=== PATIENT | female | born 1955 | race American Indian/Alaskan Native ===

== ENCOUNTER 2017-08-29 06:09 | Inpatient (IN) | payer OTHER ==
[2017-08-27 08:35] VITALS: BMI 30.9
[2017-08-29] MEDS ORDERED: MethylPREDNISolone Depo 40 mg/ml Inj ONE (07:19)
[2017-08-29] MEDS ORDERED: ceFAZolin IV 1 gm in Dextrose 1 GM/50 ML BAG IVPB ONE (07:20)
[2017-08-29] MEDS ORDERED: Bacitracin Ointment 30 GM TUBE ONE ×2 (07:20→17:01)
[2017-08-29] MEDS ORDERED: Thrombin Topical 5,000 Int Units Spray Kit ONE (07:21)
[2017-08-29] MEDS ORDERED: Absorbable Gelatin Sponge Size 100 ONE (07:21)
--- NOTE | 2017-08-29 08:14 | CP.PCM.HP ---
History of Present Illness - History of Present Illness History of Present Illness: 61 year old female with PMHx of HTN and glaucoma seen in SDS preoperatively for right knee pain secondary to osteoarthritis that she says has been getting increasingly worse over the last several months. Pt is scheduled to have right total knee replacement today with Dr. Thomas. Pt states that she has tried all conservative treatment as an outpatient including therapeutic exercises and injections to the knee but relates that none of these approaches have relieved her of her pain. She opts for surgical correction at this time. Patient states that overall she is feeling well today. She states that she has been NPO since before midnight last nights. She also states that she has had a hysterectomy and hemmerhoidectomy in the past and denies any adverse side effects from the anesthesia during or following those procedures. Patient is AAO x 3 and NAD. She denies any other complaints at this time. 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 All other systems reviewed and found to be negative Past Patient History - Past Medical History & Family History Past Medical History?: Yes - Past Social History Smoking Status: Never Smoked Chewing Tobacco Use: No Cigar Use: No Alcohol: None Drugs: Denies Home Situation {Lives}: Alone Domestic Violence: Negative - CARDIAC Hx Cardiac Disorders: Yes Hx Hypertension: Yes - PULMONARY Hx Respiratory Disorders: No - NEUROLOGICAL Hx Neurological Disorder: No - HEENT Hx HEENT Problems: Yes Hx Glaucoma: Yes (O.U) - RENAL Hx Chronic Kidney Disease: No - ENDOCRINE/METABOLIC Hx Endocrine Disorders: No - HEMATOLOGICAL/ONCOLOGICAL Hx Blood Disorders: No - INTEGUMENTARY Hx Dermatological Problems: No - MUSCULOSKELETAL/RHEUMATOLOGICAL Hx Musculoskeletal Disorders: Yes Hx Arthritis: Yes Hx Osteoarthritis: Yes - GASTROINTESTINAL Hx Gastrointestinal Disorders: No - GENITOURINARY/GYNECOLOGICAL Hx Genitourinary Disorders: No - PSYCHIATRIC Hx Psychophysiologic Disorder: No - SURGICAL HISTORY Hx Surgeries: Yes Hx Hysterectomy: Yes - ANESTHESIA Hx Anesthesia: Yes Hx Anesthesia Reactions: No Hx Malignant Hyperthermia: No Has any member of the family had a problem w/ anesthesia?: No Meds Allergies/Adverse Reactions: Allergies Allergy/AdvReac Type Severity Reaction Status Date / Time codeine Allergy RASH Verified 08/27/17 08:35 Sulfa (Sulfonamide Allergy RASH Verified 08/27/17 08:35 Antibiotics) aspirin AdvReac RASH Verified 08/27/17 08:34 Physical Exam - Constitutional Appears: Well, Non-toxic, No Acute Distress - Head Exam Head Exam: ATRAUMATIC, NORMOCEPHALIC - Eye Exam Eye Exam: EOMI, PERRL Pupil Exam: PERRL - ENT Exam ENT Exam: Mucous Membranes Moist - Neck Exam Neck exam: Positive for: Normal Inspection. Negative for: Tenderness - Respiratory Exam Respiratory Exam: Clear to Auscultation Bilateral, NORMAL BREATHING PATTERN - Cardiovascular Exam Cardiovascular Exam: REGULAR RHYTHM - GI/Abdominal Exam GI & Abdominal Exam: Soft. absent: Distended, Firm, Guarding, Tenderness - Rectal Exam Rectal Exam: Deferred - Extremities Exam Extremities exam: Negative for: calf tenderness Additional comments: Moderate edema noted to right knee. Pain noted with passive ROM - Neurological Exam Neurological exam: Alert, Oriented x3 - Psychiatric Exam Psychiatric exam: Normal Affect, Normal Mood - Skin Skin Exam: Intact, Normal Color, Warm Assessment & Plan - Assessment and Plan (Free Text) Assessment: 61 year old female with PMHx of HTN and glaucoma seen in SDS preoperatively for right knee pain secondary to osteoarthritis that she says has been getting increasingly worse over the last several months. Pt is scheduled to have right total knee replacement today with Dr. Thomas. Plan: 1. Osteoarthritis, right knee - Patient for TKR, right side with Dr. Thomas today - NPO status confirmed - Medical clearance found in chart - All charts, labs, vitals reviewed with no pertinent findings noted that would contradict surgical intervention at this time - Will f/u with pt postoperatively for pain management and continued medical management 2. HTN - All charts, labs vitals reviewed - Pt to continue at home medications; triamterene-HCTZ - Date & Time Date: 08/29/17 Time: 08:24
[2017-08-29 08:36] LABS: RBC URINE 2 /hpf (0-3); URINE BILIRUBIN NEGATIVE (NEGATIVE); URINE BLOOD NEGATIVE (NEGATIVE); URINE COLOR YELLOW (YELLOW); URINE GLUCOSE (UA) NEG (Normal); URINE KETONE NEGATIVE (NEGATIVE); URINE LEUKOCYTE ESTERASE NEG Leu/uL (Negative); URINE PROTEIN NEGATIVE (NEGATIVE); URINE UROBILINOGEN 0.2-1.0 mg/dL (0.2-1.0); WBC URINE < 1 /hpf (0-5)
[2017-08-29] MEDS ORDERED: Lactated Ringer's 1,000 ML IV ONE (09:15)
[2017-08-29] MEDS ORDERED: Bupivacaine HCl 0.5% PF (10 ml) Inj ONE ×2 (10:02→14:01)
--- NOTE | 2017-08-29 14:16 | RAD ---
PROCEDURE: Right Knee Radiographs. HISTORY: pre op COMPARISON: None. FINDINGS: BONES: No fracture or suspicious destructive bony lesion identified. JOINTS: There is marked joint space narrowing at the medial and lateral femorotibial compartments as well as the patellofemoral articulation combine with osteophytosis and articular sclerosis. Relatively extensive subchondral cyst formation seen at the patellar side of the patellofemoral joint compatible with advanced osteoarthritis. No subluxation or dislocation. JOINT EFFUSION: A mild suprapatellar bursa effusions identified. OTHER FINDINGS: None. IMPRESSION: Advanced, tricompartmental osteoarthritis right knee. No acute fracture or dislocation.
[2017-08-29] MEDS ORDERED: Midazolam 2 MG/2 ML VIAL ONE (14:28)
[2017-08-29] MEDS ORDERED: Oxycodone/Acetaminophen 5/325 mg Tab PO PRN (14:41)
[2017-08-29] MEDS ORDERED: Sevoflurane - Inhalation Anesthetic Liq (250 ml) ONE ×2 (15:21→16:44)
[2017-08-29] MEDS ORDERED: Lidocaine 4% (Laryng-O-Jet) Kit MM ONE (15:22)
[2017-08-29] MEDS ORDERED: Phenylephrine 10 mg/ml Inj ONE (15:30)
[2017-08-29] MEDS ORDERED: ePHEDrine 50 mg/ml Inj ONE (15:31)
[2017-08-29] MEDS ORDERED: Rocuronium 10 mg/ml (5 ml) ONE ×2 (15:34→15:41)
[2017-08-29] MEDS ORDERED: Succinylcholine 200 mg/10 ml Inj IV ONE (15:34)
[2017-08-29] MEDS ORDERED: Propofol 10 mg/ml Inj (20 ML) ONE (15:34)
[2017-08-29] MEDS ORDERED: Lidocaine 2% MPF (5 ml) Inj ONE (15:34)
[2017-08-29] MEDS ORDERED: Dexamethasone 4 mg/1 ml ONE (15:58)
[2017-08-29] MEDS ORDERED: Desflurane Inhalation Anesthetic Liq (240 ml) ONE (16:44)
--- NOTE | 2017-08-29 17:52 | PCM.SURG1 ---
Surgeon's Initial Post Op Note - Surgeon's Notes Surgeon: Martha Vp Publisher Development: Daisy Gamino MD/ 2nd assist- KERRI Tobias Type of Anesthesia: General Endo, Spinal Anesthesia Administered By: DR Conte/Dr Hong Pre-Operative Diagnosis: Tricompartmental O/A Operative Findings: as above. Tricopm partmental synovitis. post capsular contrxure. lateral patella contrax Post-Operative Diagnosis: as above Operation Performed: TKR R. posterior capsular release. lateral sherman;la release. tricomparmtental synovitis Specimen/Specimens Removed: synovium/cartilage/bone Estimated Blood Loss: EBL {In ML}: 50 Blood Products Given: N/A Drains Used: No Drains Post-Op Condition: Good Date of Surgery/Procedure: 08/29/17 Time of Surgery/Procedure: 15:40 (time in room/anesthesia induction time:1425)
--- NOTE | 2017-08-29 17:55 | PCM.ANESB3 ---
Femoral Nerve Block - Femoral Nerve Block Date of Procedure: 08/29/17 Anesthesiologist: Hal Pre-Procedure Diagnosis: Right Knee Arthritis Post-Procedure Diagnosis: Right knee Arthritis Procedure Performed: Femoral Nerve Block Right - Procedure Femoral Nerve Block: The procedure was explained to the patient that it is for the post-operative pain management. Consent was obtained after a thorough discussion with the patient regarding the benefits and possible complications of local anesthetic block of the femoral nerve at the inguinal crease area. The patient was brought to the operating room and standard monitors were applied. Time-out was held with the circulating nurse to confirm the correct surgery and the appropriate block. After applying oxygen by nasal cannula and administering IV Sedation, patient was placed in supine position with fully extended lower extremities and the ___right groin exposed. The femoral artery was then carefully palpated. The ultrasound transducer was then applied to this area in the transverse plane and the femoral nerve was visualized lateral to the femoral artery and underneath the fascia iliaca. After thorough identification, the inguinal crease area was prepped with Betadine solution three times and 1 % Lidocaine was injected subcutaneously for topical anesthesia. At this point, a #22 gauge Stimuplex 2-inch needle was inserted immediately lateral to the femoral artery pulse at the inguinal crease and advanced perpendicularly. The needle was inserted to the ultrasound transducer in-plane towards the femoral nerve in a [id number] direction. Needle advancement was performed carefully under direct ultrasound visualization. Nerve stimulator was used and twitch of the quadriceps muscle was obtained at current of _0.4____ MA. After negative aspiration, __20___cc of 0.375 % _Ropivicaine was injected and this was followed with cc of % . Under ultrasound guidance the local anesthetics were observed spreading below fascia iliaca and around the femoral nerve. The needle was removed intact and sterile dressing was applied. The patient had stable vital signs, was conscious and in no apparent distress. The patient tolerated the femoral nerve block well with stable vital signs and was prepared for subsequent surgery.
--- NOTE | 2017-08-29 17:58 | PCM.ANESB2 ---
Popliteal Nerve Block - Popliteal Nerve Block Date of Procedure: 08/29/17 Anesthesiologist: Hal Pre-Procedure Diagnosis: severe arthritis right knee Post-Procedure Diagnosis: sane Procedure Performed: Popliteal Nerve Block Right - Procedure Popliteal Nerve Block: This procedure was explained to the patient that it is for post-operative pain management. Consent was obtained after a thorough discussion with the patient regarding the benefits and possible complications of local anesthetic block of the sciatic nerve at the popliteal level. The patient was brought to the operating room and standard monitors are applied. Time-out was held with the circulating nurse to confirm the correct surgery and the appropriate block. After applying oxygen by nasal cannula and administering IV Sedation, patient's operative leg was gently raised and supported and the groove in between the biceps femoris and vastus lateralis muscles was carefully palpated. The skin approximately 8cm above the popliteal crease was then marked. The ultrasound transducer was then applied to the posterior thigh approximately 8cm above the popliteal crease in the transverse plane and the sciatic nerve before its division was visualized lateral to the popliteal artery and in between the bicep femoris and semimembranosus/semitendinosus muscles. After identification, the lateral portion of the thigh was prepped with Betadine solution three times and Lidocaine 1% was injected subcutaneously for topical anesthesia. At this point, a # 21 gauge Stimuplex insulated 4 inch needle was inserted into pre-marked area and advanced in a perpendicular direction. The needle was inserted above the ultrasound transducer in-plane towards the sciatic nerve in a [id number] direction. Needle advancement was performed carefully under direct ultrasound visualization. Nerve stimulator was used and dorsiflexion of the foot was elicited at a current of MA. After repeated negative aspiration, _20____cc of _0.375____ % _Ropivicaine was injected and this was flowed with cc of % . Under ultrasound guidance the local anesthetics were observed surrounding sciatic nerve . The needle was removed intact and sterile dressing was applied. The patient tolerated the popliteal nerve block well with stable vital signs and was subsequently prepared for the surgery.
[2017-08-29] MEDS ORDERED: Lidocaine 2% Inj (20ml) ONE (18:39)
[2017-08-29] MEDS ORDERED: Bupivacaine HCl 0.25% PF (10 ml) Inj ONE (18:39)
[2017-08-29] MEDS ORDERED: Sodium Bicarbonate 8.4% 10 MEQ/10 ML (PED) IV ONE (18:41)
[2017-08-29] MEDS ORDERED: EPINEPHrine 1 mg/ml (1:1000) Inj ONE (18:41)
--- NOTE | 2017-08-29 19:08 | PCM.ANESB3 ---
Femoral Nerve Block - Femoral Nerve Block Date of Procedure: 08/29/17 Anesthesiologist: Sonny Pre-Procedure Diagnosis: Right Knee OA Post-Procedure Diagnosis: Same Procedure Performed: Femoral Nerve Block Right - Procedure Femoral Nerve Block: The patient complained of 9/10 pain in the femoral nerve distribution of the operative leg after one hour of PACU time and after administration of demerol. Due to the patients reported Mario Morgan reaction to codine, options for opiate analgesia are limited. The decision was made to repeat the femoral nerve block for pain control.The procedure was again explained to the patient that it is for the post-operative pain management. Written consent was reviewed was again verbally obtained after a thorough discussion with the patient regarding the benefits and possible complications of local anesthetic block of the femoral nerve at the inguinal crease area. In the PACU, a time-out was held with the circulating nurse to confirm the correct surgery and the appropriate block. After applying oxygen by face mask, the patient was placed in supine position with fully extended lower extremities and the __right groin exposed. The femoral artery was then carefully palpated. The ultrasound transducer was then applied to this area in the transverse plane and the femoral nerve was visualized lateral to the femoral artery and underneath the fascia iliaca. After thorough identification, the inguinal crease area was prepped with Chloraprep and 1 % Lidocaine was injected subcutaneously for topical anesthesia. At this point, a #22 gauge Stimuplex 4-inch needle was inserted immediately lateral to the femoral artery pulse at the inguinal crease and advanced perpendicularly. The needle was inserted to the ultrasound transducer in-plane towards the femoral nerve in a [id number] direction. Needle advancement was performed carefully under direct ultrasound visualization. Nerve stimulator was used and twitch of the quadriceps muscle was obtained at current of __0.4___ MA. After negative aspiration, __2___cc of __2___% _lidocaine was injected and this was followed with ___6___ cc of __2 % ___lidocaine and 20cc 0.25% bupivicaine with 1:200,000 epinephrine . Under ultrasound guidance the local anesthetics were observed spreading below fascia iliaca and around the femoral nerve. The needle was removed intact The patient had stable vital signs, was conscious and in no apparent distress. The patient tolerated the femoral nerve block well and reported a significant reduction in her pain.
[2017-08-29] MEDS: Sodium Chloride 0.9% 1,000 ML IV SCH (19:58)
[2017-08-29] MEDS: ceFAZolin IV 2 gm in Dextrose 2 GM/50 ML BAG IVPB SCH (21:17)
[2017-08-30] MEDS: Sodium Chloride 0.9% 1,000 ML IV SCH (03:15)
[2017-08-30] MEDS: ceFAZolin IV 2 gm in Dextrose 2 GM/50 ML BAG IVPB SCH (04:50)
--- NOTE | 2017-08-30 07:45 | RAD ---
PROCEDURE: Right Knee Radiographs. HISTORY: s/p right knee total knee replacement COMPARISON: Right knee radiographs 08/29/2017. FINDINGS: BONES: Pain status post right total knee replacement with femoral and tibial hardware in good apparent position. Postop soft tissue changes seen surrounding the right knee joint report are predominantly anterior. Skin selena in the midline in position. No acute fracture dislocation. JOINT EFFUSION: Postop changes noted. OTHER FINDINGS: None. IMPRESSION: Status post right knee total knee replacement with limited postoperative changes in soft tissues. No acute fracture, subluxation or dislocation.
[2017-08-30 08:05] LABS: HEMATOCRIT 31.6 % (34.0-47.0); MEAN CELL VOLUME 88.4 fl (81.0-99.0); MEAN CORPUSCULAR HEMOGLOBIN 29.7 pg (27.0-31.0); MEAN CORPUSCULAR HGB CONC 33.6 g/dL (33.0-37.0); RED CELL DISTRIBUTION WIDTH 13.6 % (11.5-14.5); WHITE BLOOD COUNT 10.1 K/uL (4.8-10.8)
[2017-08-30 08:44] LABS: BLOOD UREA NITROGEN 14 mg/dl (7-17); CALCIUM 8.8 mg/dL (8.4-10.2); CARBON DIOXIDE 31 mmol/L (22-30); CHLORIDE 102 mmol/L (98-107); GFR AFRICAN-AMERICAN > 60; GLUCOSE,RANDOM 117 mg/dL (65-105); SODIUM 139 mmol/l (132-148)
[2017-08-30] MEDS ORDERED: Influenza Vaccine 18yr & older 0.5 ML/45 MCG SYR IM ONE (09:00)
--- NOTE | 2017-08-30 09:39 | CP.PCM.PN ---
Subjective - Date & Time of Evaluation Date of Evaluation: 08/30/17 Time of Evaluation: 09:39 - Subjective Subjective: Patient complaining of pain in her knee. She says the pill does not help the pain. Denies CP/SOB/dizziness/numbness/tingling. Objective - Vital Signs/Intake and Output Vital Signs (last 24 hours): Temp Pulse Resp BP Pulse Ox 98.3 F 72 19 123/55 L 97 08/30/17 07:57 08/30/17 07:57 08/30/17 07:57 08/30/17 07:57 08/30/17 07:57 - Medications Medications: Current Medications Docusate Sodium (Colace) 100 mg PO BID SU Enoxaparin Sodium (Lovenox) 40 mg SC DAILY SU PRN Reason: Protocol Hydromorphone HCl (Dilaudid) 0.5 mg IVP Q4 PRN PRN Reason: Pain, severe (8-10) Last Admin: 08/30/17 04:53 Dose: 0.5 mg Sodium Chloride (Sodium Chloride 0.9%) 1,000 mls @ 80 mls/hr IV .[id number] [facility] Stop: 08/30/17 14:44 Last Admin: 08/30/17 03:15 Dose: 80 mls/hr Ondansetron HCl (Zofran Inj) 4 mg IVP ONCE PRN PRN Reason: Nausea/Vomiting - Labs Labs: 08/30/17 07:57 08/30/17 07:57 - Extremities Exam Additional comments: RLE: +ROM ankle/toes, sensation intact, +DP/PT pulses, calves soft NT neg homans , sitting in chair NAD Assessment and Plan (1) Primary osteoarthritis of right knee Assessment & Plan: POD#1 s/p right total knee replacement -2 percocet prn pain -PT/OT/CPM -lovenox for VTE prph (pt allergy to aspirin) -d/c planning to rehab, orthopedically stable for transfer -d/w Dr. Thomas, agrees with above Status: Acute
--- NOTE | 2017-08-30 11:05 | OP ---
PROCEDURE DATE: 08/29/2017 PREOPERATIVE DIAGNOSIS: Severe tricompartmental osteoarthritis of the right knee with deformity. POSTOPERATIVE DIAGNOSIS: Severe tricompartmental osteoarthritis of the right knee with deformity. PROCEDURES: 1. Right total knee replacement arthroplasty. 2. Posterior capsular release. 3. Anterior and posterior synovectomy. 4. Lateral patellar retinacular release. 5. Computer navigation. SURGEON: Herber Thomas MD INTERNET MARKETING DIRECTOR: Tiarra Gamino MD SECOND CUT PRESS OPERATOR: Dahiana Cornell, certified registered nursing assistant banquet manager. TYPE OF ANESTHESIA: Spinal and general anesthesia. ANESTHESIA ADMINISTERED BY: Sean Dennis M.D. COMPLICATIONS: No complications. DRAINS: No drains. ESTIMATED BLOOD LOSS: Approximately 50 mL. 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 The patient has been refractory. Conservative management consisting of anti-inflammatory medication therapy, Intra-articular injection, activity modification. The patient can no longer withstand the pain. Pros, cons, risks and benefits of surgery approach were discussed. The possibility of mechanical failure, infection, thromboembolic disease, secondary or tertiary surgery is discussed. The patient can no longer withstand the discomfort. 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 The right lower extremity was prepped, free draped in the usual fashion for extremity surgery. The tourniquet had been applied, but was not yet inflated. After exsanguinating the limb using a 6-inch Esmarch bandage, tourniquet which had been applied was inflated to 350 mmHg. A 6-inch straight midline approach was made to the knee. The skin incision was carried down to the skin, subcutaneous tissue. Medial arthrotomy was accomplished. Patella was everted. The knee was flexed. Medial and lateral meniscectomies were accomplished. Anterior and posterior cruciate ligaments were excised. The tibia was dislocated anteriorly and initial osteotomy of the arthroplasty was accomplished on the tibial side. The computer navigation begins at this point. The anterior tibial support for the accelerometer was affixed. Registration was accomplished with the offset from the posterior insertion of the anterior cruciate ligament to the lateral malleolus, medial malleolus. Registration having been accomplished, varus-valgus was set to 0 degrees, posterior slope was 3.5 degrees, the tibial cut was 10-mm below the more prominent condyle. Tibial cut having been accomplished, a portion of the iliotibial band insertion of the Gerdy's tubercle was released. The proximal tibia was prepared. Guidance to rotation of the lateral aspect, the tibial condyle, mid malleolar axis, medial third of the tibial tuberosity. Proximal tibia was prepared, attention was now turned to the femur. A navigation pin was placed above the intercondylar notch and computer navigation again was initiated. The distal cutting guide was affixed and the accelerometer and sensor were applied. The hip center was found. The varus-valgus was set to 0 degrees and flexion to approximately 0.5 degrees. This having been accomplished, the distal cut is accomplished, measuring is to a #3 femoral component. This having been accomplished, the 4-in-1 block was placed across the epicondylar axis. Anterior and posterior osteotomies were accomplished, chamfer cuts as well. At this point in time, there was found to be a marked synovitis and the anterior and posterior synovectomy was accomplished using the electrocautery. Anterior and posterior synovectomy having been accomplished, the wound was thoroughly irrigated. Posterior capsular release was found and there must be evidence of a posterior capsular contracture and lateral patellar retinacular contracture. After completing an anterior and posterior synovectomy, lateral patellar retinacular release was accomplished, the posterior capsular release was accomplished, and at this point in time, trialing is accomplished with the #3 femoral component. After the femur was trialed, femur was placed. Lugs were reamed. The patellofemoral articulation is built and attention was turned to the trialing #10 polyethylene. Flexion extension gap was found to be excellent and balanced. Full extension was achieved. The wound was thoroughly irrigated. Attention was turned to the patella. Patella girth was 29 mm. Freehand patella osteotomy was accomplished. Patella was prepared. Flexion extension gap was balanced and the patella balance was excellent as well. The patella, femur, and tibia were prepared using the [place] and the #3 cemented femoral component was applied, the #3 cemented tibial tray, 10 mm polyethylene, #2 patella. The tourniquet was deflated. Hemostasis controlled. Closures in layers, #1 Vicryl followed by 0 Vicryl, 2-0 Vicryl and selena. Michael Wild compression dressing was applied. Postoperative x-rays revealed excellent position of the construct. Herber Thomas MD
[2017-08-30] MEDS: Enoxaparin 40 mg Syringe SC SCH (11:19)
--- NOTE | 2017-08-30 13:54 | CP.PCM.PN ---
Subjective - Date & Time of Evaluation Date of Evaluation: 08/30/17 Time of Evaluation: 13:45 - Subjective Subjective: Patient seen and examined bedside. Complains of pain to right knee ,controlled with pain medication . Hemodynamically stable, afebrile. No acute issues overnight Objective - Vital Signs/Intake and Output Vital Signs (last 24 hours): Temp Pulse Resp BP Pulse Ox 98.3 F 72 19 123/55 L 97 08/30/17 07:57 08/30/17 07:57 08/30/17 07:57 08/30/17 07:57 08/30/17 07:57 - Medications Medications: Current Medications Docusate Sodium (Colace) 100 mg PO BID [facility] Last Admin: 08/30/17 09:00 Dose: 100 mg Enoxaparin Sodium (Lovenox) 40 mg SC DAILY [facility] PRN Reason: Protocol Last Admin: 08/30/17 11:19 Dose: 40 mg Hydromorphone HCl (Dilaudid) 0.5 mg IVP Q4 PRN PRN Reason: Pain, severe (8-10) Last Admin: 08/30/17 04:53 Dose: 0.5 mg Sodium Chloride (Sodium Chloride 0.9%) 1,000 mls @ 80 mls/hr IV .[id number] [facility] Stop: 08/30/17 14:44 Last Admin: 08/30/17 03:15 Dose: 80 mls/hr Ondansetron HCl (Zofran Inj) 4 mg IVP ONCE PRN PRN Reason: Nausea/Vomiting Oxycodone/Acetaminophen (Percocet 5/325 Mg Tab) 2 tab PO Q4 PRN PRN Reason: Pain, moderate (4-7) Stop: 09/01/17 14:42 - Labs Labs: 08/30/17 07:57 08/30/17 07:57 - Constitutional Appears: Non-toxic, No Acute Distress - Head Exam Head Exam: ATRAUMATIC, NORMAL INSPECTION, NORMOCEPHALIC - Eye Exam Eye Exam: EOMI, Normal appearance, PERRL Pupil Exam: NORMAL ACCOMODATION - ENT Exam ENT Exam: Mucous Membranes Moist, Normal Exam - Neck Exam Neck Exam: Full ROM, Normal Inspection - Respiratory Exam Respiratory Exam: Clear to Ausculation Bilateral, NORMAL BREATHING PATTERN. absent: Rales, Rhonchi, Wheezes - Cardiovascular Exam Cardiovascular Exam: REGULAR RHYTHM, RRR, +S1, +S2. absent: JVD - GI/Abdominal Exam GI & Abdominal Exam: Soft, Normal Bowel Sounds. absent: Distended, Guarding, Tenderness, Rebound - Rectal Exam Rectal Exam: Deferred - Extremities Exam Extremities Exam: absent: Calf Tenderness, Pedal Edema Additional comments: right knee mariano bandage dressing in place toes warm to touch able to move - Back Exam Back Exam: NORMAL INSPECTION - Neurological Exam Neurological Exam: Alert, Awake, CN II-XII Intact, Oriented x3 - Psychiatric Exam Psychiatric exam: Normal Affect, Normal Mood - Skin Skin Exam: Dry, Intact, Normal Color, Warm Assessment and Plan - Assessment and Plan (Free Text) Plan: 61 year old female with PMHx of HTN and glaucoma admitted via SAD for right knee pain secondary to osteoarthritis and for planned total knee replacement with Dr. Thomas. Today post op # 1 , doing well. Plan for d./c to [facility] . 1. Osteoarthritis, right knee s/p TKR POD # 1 Hemodynamically stable Cleared by ortho for discharge PT audrey appreciated . Waiting in insurance approval; for discharge to [facility] Continue incentive spirometry Pain management CPM machine use as per ortho Lovenox for DVT prophylaxis 2. HTN controlled on triamterene-HCTZ 3. Acute blood loss anemia Hgb dropped to 10 Monitor for now 4. DVT prophylaxis lovenox
[2017-08-30] MEDS: Oxycodone/Acetaminophen 5/325 mg Tab PO PRN (14:02)
--- NOTE | 2017-08-31 07:24 | CP.PCM.DIS ---
Provider - Provider Date of Admission: 08/29/17 14:41 Attending physician: Abhinav Bourgeois MD Primary care physician: Herber Thomas III, MD Consults: ortho consult pt/ot consult Time Spent in preparation of Discharge (in minutes): 15 Hospital Course - Lab Results Lab Results: Most Recent Lab Values WBC 10.1 K/uL (4.8-10.8) 08/30/17 07:57 RBC 3.58 Mil/uL (3.80-5.20) L 08/30/17 07:57 Hgb 10.6 g/dL (12.0-16.0) L 08/30/17 07:57 Hct 31.6 % (34.0-47.0) L 08/30/17 07:57 MCV 88.4 fl (81.0-99.0) 08/30/17 07:57 MCH 29.7 pg (27.0-31.0) 08/30/17 07:57 MCHC 33.6 g/dL (33.0-37.0) 08/30/17 07:57 RDW 13.6 % (11.5-14.5) 08/30/17 07:57 Plt Count 131 K/uL (130-400) 08/30/17 07:57 Sodium 139 mmol/l (132-148) 08/30/17 07:57 Potassium 4.0 MMOL/L (3.6-5.0) 08/30/17 07:57 Chloride 102 mmol/L (98-107) 08/30/17 07:57 Carbon Dioxide 31 mmol/L (22-30) H 08/30/17 07:57 Anion Gap 10 (10-20) 08/30/17 07:57 BUN 14 mg/dl (7-17) 08/30/17 07:57 Creatinine 0.8 mg/dl (0.7-1.2) 08/30/17 07:57 Est GFR ( Amer) > 60 08/30/17 07:57 Est GFR (Non-Af Amer) > 60 08/30/17 07:57 Random Glucose 117 mg/dL (65-105) H 08/30/17 07:57 Calcium 8.8 mg/dL (8.4-10.2) 08/30/17 07:57 Urine Color Yellow (YELLOW) 08/29/17 08:21 Urine Clarity Clear (Clear) 08/29/17 08:21 Urine pH 6.0 (5.0-8.0) 08/29/17 08:21 Ur Specific Jermyn 1.016 (1.003-1.030) 08/29/17 08:21 Urine Protein Negative mg/dL (NEGATIVE) 08/29/17 08:21 Urine Glucose (UA) Neg mg/dL (Normal) 08/29/17 08:21 Urine Ketones Negative mg/dL (NEGATIVE) 08/29/17 08:21 Urine Blood Negative (NEGATIVE) 08/29/17 08:21 Urine Nitrate Negative (NEGATIVE) 08/29/17 08:21 Urine Bilirubin Negative (NEGATIVE) 08/29/17 08:21 Urine Urobilinogen 0.2-1.0 mg/dL (0.2-1.0) 08/29/17 08:21 Ur Leukocyte Esterase Neg Madelyn/uL (Negative) 08/29/17 08:21 Urine RBC (Auto) 2 /hpf (0-3) 08/29/17 08:21 Urine Microscopic WBC < 1 /hpf (0-5) 08/29/17 08:21 Ur Squamous Epith Cells < 1 /hpf (0-5) 08/29/17 08:21 Blood Type B POSITIVE 08/29/17 07:21 Blood Type Confirm B POSITIVE 08/29/17 08:43 Antibody Screen Negative 08/29/17 07:21 Crossmatch See Detail 08/29/17 07:21 BBK History Checked No verified bt 08/29/17 07:21 - Hospital Course Hospital Course: 61 year old female with PMHx of HTN and glaucoma admitted via SAD for right knee pain secondary to osteoarthritis and for planned total knee replacement with Dr. Thomas. Today post op # 2 , doing well. Plan for d./c to [facility] . 1. Osteoarthritis, right knee s/p TKR POD # 1 Hemodynamically stable Cleared by ortho for discharge PT eval appreciated . Waiting in insurance approval; for discharge to [facility] Continue incentive spirometry Pain management CPM machine use as per ortho Lovenox for DVT prophylaxis 2. HTN controlled on triamterene-HCTZ 3. Acute blood loss anemia Hgb dropped to 10 Monitor for now 4. DVT prophylaxis lovenox Discharge Exam - Head Exam Head Exam: ATRAUMATIC, NORMAL INSPECTION, NORMOCEPHALIC - Eye Exam Eye Exam: EOMI, Normal appearance, PERRL Pupil Exam: NORMAL ACCOMODATION - ENT Exam ENT Exam: Mucous Membranes Moist, Normal Exam - Neck Exam Neck exam: Full Rom, Normal Inspection - Respiratory Exam Respiratory Exam: Clear to PA & Lateral, NORMAL BREATHING PATTERN. absent: Rales, Rhonchi, Wheezes - Cardiovascular Exam Cardiovascular Exam: REGULAR RHYTHM, RRR, +S1, +S2. absent: JVD - GI/Abdominal Exam GI & Abdominal Exam: Normal Bowel Sounds, Soft. absent: Distended, Guarding, Rebound, Tenderness - Rectal Exam Rectal Exam: Deferred - Extremities Exam Extremities exam: normal capillary refill, pedal pulses present Additional comments: right knee mariano bandage in place - Back Exam Back exam: NORMAL INSPECTION - Neurological Exam Neurological exam: Alert, CN II-XII Intact, Oriented x3, Reflexes Normal - Psychiatric Exam Psychiatric exam: Normal Affect, Normal Mood - Skin Skin Exam: Dry, Intact, Normal Color, Warm Discharge Plan - Follow Up Plan Condition: GOOD Disposition: REHAB FACILITY/REHAB UNIT Patient education suggested?: Yes Instructions: Knee Replacement (DC) Referrals: Herber Thomas III, MD [Primary Care Provider] -
[2017-08-31 08:13] LABS: HEMATOCRIT 32.4 % (34.0-47.0); MEAN CELL VOLUME 89.1 fl (81.0-99.0); MEAN CORPUSCULAR HEMOGLOBIN 28.9 pg (27.0-31.0); MEAN CORPUSCULAR HGB CONC 32.5 g/dL (33.0-37.0); RED CELL DISTRIBUTION WIDTH 13.6 % (11.5-14.5); WHITE BLOOD COUNT 10.6 K/uL (4.8-10.8)
[2017-08-31] MEDS ORDERED: hydroCHLOROthiazide-Triamterene 25 mg-37.5 mg Cap UD PO STA (08:23)
[2017-08-31] MEDS: Enoxaparin 40 mg Syringe SC SCH (09:24)
[2017-08-31] MEDS ORDERED: Povidone Iodine Topical 10% Sol ONE (11:54)
[2017-08-31 12:47] VITALS: BP 154/67; PULSE 87; RESP 20; TEMP 98.7; O2SAT 97
[2017-08-31] MEDS: Oxycodone/Acetaminophen 5/325 mg Tab PO PRN (14:40)
== END 2017-08-31 14:53 | DRG 470 ==
LOC: H.OPSURG 06:09 → H.MEDSURG1 14:41
PROVIDERS: ADMIT Hospitalist; ATTEND Hospitalist
PROC: 8E0YXBZ Computer Assisted Procedure of Lower Extremity (ICD-10-PCS; 2017-08-29)
PROC: 3E0T3BZ Introduction of Anesthetic Agent into Peripheral Nerves and Plexi, Percutaneous Approach (ICD-10-PCS; 2017-08-29)
PROC: 3E0T3BZ Introduction of Anesthetic Agent into Peripheral Nerves and Plexi, Percutaneous Approach (ICD-10-PCS; 2017-08-29)
PROC: 0SRC0J9 Replacement of Right Knee Joint with Synthetic Substitute, Cemented, Open Approach (ICD-10-PCS; principal; 2017-08-29 09:45)
PROC: 0SBC0ZZ Excision of Right Knee Joint, Open Approach (ICD-10-PCS; 2017-08-29 09:45)
PROC: 0SNC0ZZ Release Right Knee Joint, Open Approach (ICD-10-PCS; 2017-08-29 09:45)
PROC: 3E0234Z Introduction of Serum, Toxoid and Vaccine into Muscle, Percutaneous Approach (ICD-10-PCS; 2017-08-30)
DX: M17.11 Unilateral primary osteoarthritis, right knee (principal); D62 Acute posthemorrhagic anemia; H40.9 Unspecified glaucoma; I10 Essential (primary) hypertension; M65.9 Synovitis and tenosynovitis, unspecified; Z88.6 Allergy status to analgesic agent; Z88.2 Allergy status to sulfonamides; Z23 Encounter for immunization; M24.561 Contracture, right knee